=== PATIENT | female | born 2000 | race Asian ===

== ENCOUNTER 2022-07-16 18:50 | Inpatient (IN) | payer SELFPAY ==
[2022-07-16 19:09] VITALS: BMI 24.9
[2022-07-16] MEDS ORDERED: LACTULOSE 20 GM/30 ML UDC (FOR ORAL USE ONLY) PO ONE (19:17)
[2022-07-16] MEDS ORDERED: SODIUM CHLORIDE 0.9% 500 ML INFUS.BAG IV ONE (19:23)
[2022-07-16] MEDS ORDERED: ACETAMINOPHEN 1000 MG/100 ML BAG IVPB ONE (19:24)
[2022-07-16] MEDS ORDERED: ACETAMINOPHEN INJECTION 100 ML IVPB ONE (19:41)
[2022-07-16 19:56] LABS: HEMATOCRIT 29.8 % (32.4-45.2); HEMOGLOBIN 9.9 G/dL (10.7-15.3); MCHC 33.1 g/dl (32.0-36.0); MEAN CELL VOLUME 50.1 fl (80-96); MEAN PLT VOLUME 10.8 fl (7.5-11.1); RBC 5.95 10^6/uL (3.60-5.2); RDW 29.3 % (11.6-15.6); WHITE BLOOD COUNT 10.2 10^3/uL (4.0-10.8)
[2022-07-16 20:02] LABS: MCH 16.6 pg (25.7-33.7)
[2022-07-16 20:03] LABS: ALBUMIN 4.3 g/dl (3.4-5.0); BILIRUBIN,TOTAL 0.6 mg/dl (0.2-1); CALCIUM 9.1 mg/dl (8.5-10); CREATININE 0.5 mg/dl (0.55-1.3); TOT PROT 7.7 g/dl (6.4-8.2)
[2022-07-16 20:15] LABS: HCG,QUALITATIVE URINE NEGATIVE
[2022-07-16 20:17] LABS: EPITHELIAL CELLS RARE /hpf; URINE MUCUS 1+
[2022-07-16] MEDS ORDERED: LACTATED RINGERS SOLUTION 1,000 ML/1,000 ML INFUS.BAG IV SCH (20:30)
[2022-07-16 20:33] LABS: ANISOCYTOSIS 3+; MACROCYTOSIS 1+; OVALOCYTE 2+; TARGET CELLS 1+
[2022-07-16 20:36] LABS: PLATELET ESTIMATE INCREASED; TEAR DROP CELLS 2+
[2022-07-16] MEDS ORDERED: DEXTROSE 5%-NORMAL SALINE 1,000 ML IV SCH (22:00)
[2022-07-16 22:12] LABS: INR 1.1 (0.83-1.09); PROTHROMBIN TIME (PATIENT) 12.7 SEC (9.7-13.0)
[2022-07-16] MEDS ORDERED: morphine CARPU-JECT 2 MG/1 ML DISP.SYRIN IVPUSH ONE (23:46)
[2022-07-17] MEDS ORDERED: morphine SULFATE 4 MG/ML VIAL ONE (00:06)
[2022-07-17] MEDS ORDERED: ACETAMINOPHEN INJECTION 100 ML IVPB ONE (02:17)
[2022-07-17] MEDS: ACETAMINOPHEN 1000 MG/100 ML BAG IVPB PRN ×2 (02:23→09:18)
[2022-07-17] MEDS ORDERED: HYDROmorphone HCl 2 MG/ML VIAL ONE (05:20)
[2022-07-17] MEDS ORDERED: ONDANSETRON 4 MG/2 ML VIAL ONE (05:20)
[2022-07-17] MEDS: ONDANSETRON 4 MG/2 ML VIAL IVPUSH PRN ×2 (05:30→09:12)
[2022-07-17] MEDS ORDERED: HYDROmorphone HCl 2 MG/ML VIAL IVPB PRN (05:37)
[2022-07-17 07:54] LABS: CALCIUM 8.4 mg/dL (8.5-10.1)
[2022-07-17 07:55] LABS: BLOOD UREA NITROGEN 8.2 mg/dL (7-18); MAGNESIUM 2.1 mg/dL (1.8-2.4)
[2022-07-17 07:58] LABS: CREATININE 0.5 mg/dL (0.55-1.3); PHOSPHOROUS 4.2 mg/dL (2.5-4.9)
[2022-07-17 08:59] LABS: BASO % 0.5 % (0-2.0); EOS % 0.8 % (0-4.5); HEMATOCRIT 27.9 % (32.4-45.2); HEMOGLOBIN 8.4 GM/dL (10.7-15.3); LYMPH % 36.2 % (8-40); MCHC 30.1 g/dl (32.0-36.0); MEAN CELL VOLUME 47.4 fl (80-96); MEAN PLT VOLUME 9.8 fl (7.5-11.1); MONO % 4.5 % (3.8-10.2); PLATELET COUNT 316 10^3/uL (134-434); RBC 5.89 M/mm3 (3.60-5.2); RDW 23.2 % (11.6-15.6)
[2022-07-17 09:14] LABS: MCH 14.3 pg (25.7-33.7)
[2022-07-17] MEDS ORDERED: METOCLOPRAMIDE HCL INJECTION 10 MG/2 ML VIAL IVPUSH PRN (10:21)
[2022-07-17] MEDS ORDERED: IRON SUCROSE INJECTION 300 MG in SODIUM CHLORIDE 235 ML IVPB ONE (10:21)
[2022-07-17] MEDS ORDERED: FERROUS SO4 325 MG TABLET (FP) PO SCH (12:00)
[2022-07-17 14:53] VITALS: BP 115/63; PULSE 78; RESP 16; TEMP 98.2
== END 2022-07-17 17:50 | disposition home or self-care (01) | DRG 532 ==
LOC: FER 18:50 → J3W 07-17 03:15
PROVIDERS: ADMIT Internal Medicine
DX: N83.202 Unspecified ovarian cyst, left side (principal); N92.0 Excessive and frequent menstruation with regular cycle; R10.9 Unspecified abdominal pain
CPT/HCPCS: 36415; 76856-TC; 80048; 80053; 81003; 81015; 82728; 83540; 83550; 83735; 84100; 84703; 85025; 85610; 86304; 86850; 86900; 86901; 99285-25; C9803-CS; J1756; U0003; U0005